=== PATIENT | female | born 1955 | race Caucasian/White ===

== ENCOUNTER → 2016-08-25 06:46 | Day surgery (SDC) | payer OTHER ==
[~2016-08-25 06:46] MED LIST: Buffered Lidocaine 1% SYR 3ML* 3 ML/SYR SYRINGE INTRADERM ONE; Buffered Lidocaine 1% SYR 3ML* 3 ML/SYR SYRINGE ONE; Bupivacaine 0.5% SDV PF* 30 ML VIAL ONE; Dexamethasone IV* 4 MG/ML 1 ML (4 MG) IV SLOW PU ONE; Dexamethasone IV* 4 MG/ML 1 ML (4 MG) ONE; Famotidine IV* 10 MG/ML 2 ML (20 mg) IV ONE; Famotidine IV* 10 MG/ML 2 ML (20 mg) ONE; HYDROcodone/ACETAMIN 5-325 MG* 1 TAB PO PRN; Ketorolac INJ* 30 MG/ML 1 ML VIAL IV PRN; Lidocaine 1% INJ* 10 MG/ML 30 ML SDV ONE; Lidocaine 2% PF * 5 ML VIAL ONE; Midazolam* 1 MG/ML 2 ML VIAL (2 MG) ONE; PROCHLORPERAZINE INJ 5 MG/ML 2 ML VIAL IV PRN; Propofol* 10 MG/ML 20 ML BTL IV PUSH ONE; ceFAZolin 2 GM PREMIX (*) 2 GM/50 ML BAG IVPB ONE; fentaNYL* 50 MCG/ML 2 ML VIAL (100 MCG VIAL) IV PRN; fentaNYL* 50 MCG/ML 2 ML VIAL (100 MCG VIAL) ONE
[2016-08-25 09:48] VITALS: BP 124/69
--- NOTE | 2016-08-25 12:06 | OP ---
DATE OF OPERATION: 08/25/16 - [facility] DATE OF : 59 SURGEON: Daniel Ordonez DPM BRUSH OPERATOR: None. ANESTHESIOLOGIST: Darin Ramirez MD ANESTHESIA: MAC with local. PRE-OP DIAGNOSIS: Painful bunion deformity with hallux limitus, left foot. POST-OP DIAGNOSIS: Painful bunion deformity with hallux limitus, left foot. OPERATIVE PROCEDURE: Bunionectomy with closing base wedge osteotomy in the left foot. INDICATIONS: The patient with chronic left forefoot pain and deformity with hallux valgus deformity, hypertrophy of the great toe joint, decreased range of motion, hypertrophic bone medially causing pain when walking, wearing shoes on a daily basis. The patient opts for surgery at this time to attempt to decrease the deformity, decrease pain, and improve function. PATHOLOGY: Degenerative bone. HEMOSTASIS: Pneumatic ankle tourniquet. MATERIALS: Two of 3.0-mm cannulated Laura screws. DESCRIPTION OF PROCEDURE: The patient was brought to the operating room, placed on the operating table in the supine position. The anesthesia department administered IV sedation and a peripheral nerve block was performed on the left forefoot with 1:1 mixture of 1% lidocaine plain and 0.5% Marcaine plain. The left foot was prepped and draped in the usual fashion. An Esmarch bandage was utilized to exsanguinate the left foot and the pneumatic ankle tourniquet was inflated to 250 mmHg above the well-padded left ankle. Attention was directed to the dorsal medial aspect of the left great toe joint where a curvilinear incision was made. The incision was deepened through the subcutaneous tissues with care being taken to retract neurovascular structures and cauterize superficial bleeders as needed. Next, an inverted L capsular incision was made to allow for exposure of the joint in the first metatarsal. There was noted to be hypertrophic bone at the medial eminence. The sesamoid apparatus had some adhesions, which were freed using a McGlamry elevator. The joint surfaces were inspected. There was noted to be partial and full- thickness cartilaginous erosions on the tibial sesamoid as well as the adjacent surface of the plantar medial first metatarsal head. Dissection was carried into the first intermetatarsal space where traditional lateral release was performed transecting the conjoint tendon of the abductor hallucis portion of the lateral sesamoid ligament and posterolateral capsule. Extensor hallucis brevis tendon was also identified and transected. This allowed for relaxation of lateral contractures. Next, the medial eminence of first metatarsal head was resected with a sagittal saw in such a manner as to preserve the sagittal groove. There resultant bone was sent off the field. Next, the closing base wedge osteotomy was performed. The apex, proximal, medial, and the base of the wedge more distal laterally. The osteotomy was reduced, secured with a bone clamp. Position was checked with intraoperative C-arm. Next, using standard technique, two of the 3.0- mm cannulated Laura screws were placed across the osteotomy site. The temporary fixation was removed and the osteotomy was found to be solid with no detectable motion or gapping. The screws were of 2 fingers ' tight. The C-arm was again used to assess fixation as well as correction. Sesamoid apparatus was noted to be realigned to the first metatarsal head. Rough surfaces were smoothed with a power bur. Surgical site was flushed with copious amounts of normal sterile saline. A medial capsulorrhaphy was then performed resecting redundant medial capsule and while holding the hallux in rectus position, 2-0 Polysorb was used to secure the capsular and periosteal tissues. Subcutaneous tissues were reapproximated, secured with 4-0 Polysorb, and skin was reapproximated with 5-0 nylon. 12 mg total of dexamethasone phosphate was infiltrated about the surgical site. The surgical site was then dressed with Xeroform gauze, 4x4 gauze, Tasha, and light Coban wrap. The pneumatic ankle tourniquet was deflated about the left ankle and a prompt hyperemic response was noted about all five digits of the the patient's left foot. Having appeared to tolerate the procedure and anesthesia well, the patient was transported via cart from the operating room to Recovery in satisfactory condition with capillary refill less than 3 seconds to all digits of the left foot. [id number]/[facility] #: [id number] MTDD
== END | disposition home or self-care (01) ==
LOC: OREAST 06:46
PROVIDERS: ATTEND Podiatrist Foot Surgery
DX: M21.612 Bunion of left foot (principal); M20.5X2 Other deformities of toe(s) (acquired), left foot; J45.909 Unspecified asthma, uncomplicated
CPT/HCPCS: 88304; 88311; C1713; J0690; J1100; J2250; J2704; J3010

== ENCOUNTER 2017-08-24 06:45 | Day surgery (SDC) | payer OTHER ==
[~2017-08-24 06:45] MED LIST changes: +Buffered Lidocaine 0.9% SYRIN* 5 ML/SYR SYRINGE INTRADERM ONE; -Buffered Lidocaine 1% SYR 3ML* 3 ML/SYR SYRINGE INTRADERM ONE; -Buffered Lidocaine 1% SYR 3ML* 3 ML/SYR SYRINGE ONE; -Bupivacaine 0.5% SDV PF* 30 ML VIAL ONE; -Dexamethasone IV* 4 MG/ML 1 ML (4 MG) IV SLOW PU ONE; -Dexamethasone IV* 4 MG/ML 1 ML (4 MG) ONE; -Famotidine IV* 10 MG/ML 2 ML (20 mg) IV ONE; -Famotidine IV* 10 MG/ML 2 ML (20 mg) ONE; -HYDROcodone/ACETAMIN 5-325 MG* 1 TAB PO PRN; -Ketorolac INJ* 30 MG/ML 1 ML VIAL IV PRN; -Lidocaine 1% INJ* 10 MG/ML 30 ML SDV ONE; -Lidocaine 2% PF * 5 ML VIAL ONE; -Midazolam* 1 MG/ML 2 ML VIAL (2 MG) ONE; -PROCHLORPERAZINE INJ 5 MG/ML 2 ML VIAL IV PRN; -Propofol* 10 MG/ML 20 ML BTL IV PUSH ONE; -ceFAZolin 2 GM PREMIX (*) 2 GM/50 ML BAG IVPB ONE; -fentaNYL* 50 MCG/ML 2 ML VIAL (100 MCG VIAL) IV PRN; -fentaNYL* 50 MCG/ML 2 ML VIAL (100 MCG VIAL) ONE
[2017-08-24] MEDS ORDERED: ceFAZolin 2 GM PREMIX (*) 2 GM/50 ML BAG IVPB ONE (06:56)
[2017-08-24] MEDS ORDERED: Dexamethasone IV* 4 MG/ML 1 ML (4 MG) ONE (07:17)
[2017-08-24] MEDS ORDERED: Bupivacaine 0.5% SDV PF* 10-30ML VIAL ONE (07:17)
[2017-08-24] MEDS ORDERED: Lidocaine 1% INJ* 10 MG/ML 30 ML SDV ONE (07:17)
[2017-08-24] MEDS ORDERED: fentaNYL* 50 MCG/ML 2 ML VIAL (100 MCG VIAL) ONE (07:46)
[2017-08-24] MEDS ORDERED: Midazolam* 1 MG/ML 2 ML VIAL (2 MG) ONE (07:46)
[2017-08-24] MEDS ORDERED: Naloxone* 0.4 MG/ML 1 ML VIAL IV PRN (09:22)
[2017-08-24 09:58] VITALS: BP 117/71
--- NOTE | 2017-08-25 01:37 | OP ---
DATE OF OPERATION: 08/24/17 - [facility] DATE OF : 59 SURGEON: Daniel Ordonez DPM JACK MACHINE OPERATOR: None. ANESTHESIA: MAC with local. PRE-OP DIAGNOSIS: Painful bunion deformity with hallux limitus, right foot. POST-OP DIAGNOSIS: Painful bunion deformity with hallux limitus, right foot. OPERATIVE PROCEDURE: Bunionectomy with closing base wedge osteotomy on the right foot. PATHOLOGY: Degenerative bone. HEMOSTASIS: Pneumatic ankle tourniquet. ESTIMATED BLOOD LOSS: Less than 10 cc. MATERIALS: Two of the 3.0 mm cannulated Laura screws. INDICATIONS: The patient with chronic right forefoot pain and deformity with bunion and hypertrophic bone and angular deformity of the great toe causing pain wearing shoes and walking. She opts for surgery at this time to attempt to decrease pain and improve function. DESCRIPTION OF PROCEDURE: The patient was brought to the operating room, placed on the operating table in supine position. The anesthesia department administered IV sedation and peripheral nerve block performed about the right forefoot with 1:1 mixture of 1% lidocaine plain and 0.5% Marcaine plain. The right foot was prepped and draped in the usual fashion. Next, an Esmarch bandage was utilized to exsanguinate the right foot and the pneumatic ankle tourniquet was inflated to 250 mmHg above a well-padded right ankle. Attention was directed to the dorsal medial aspect of the right great toe joint where a curvilinear incision was made. The incision was deepened through the subcutaneous tissues with care being taken to retract neurovascular structures and cauterize superficial bleeders as needed. Next, an inverted L capsular incision was made to allow for exposure of the joint. There was noted to be hypertrophic bone at the medial aspect of the first metatarsal head. Sagittal saw was used to resect this medial growth of bone in a manner as to preserve the sagittal groove. Next, a McGlamry elevator was needed to free the plantar lateral adhesions of the sesamoid apparatus. Next, dissection was carried into the first intermetatarsal space where a traditional lateral release was performed transecting the conjoint tendon of the adductor hallucis tendon, portion of the lateral fibular sesamoid ligament and portion of the lateral capsule. The extensor hallucis brevis tendon was also identified and transected. This allowed for relaxation of lateral contractures. A power bur was used to smooth any rough edges in the first metatarsal head medially. The surgical site was flushed with copious amounts of normal sterile saline. Dissection was carried proximally reflecting the periosteum and exposing the more proximal portion of the first metatarsal. Next, a closing base wedge osteotomy was performed to the direct desired correction. Temporary fixation was achieved with a bone clamp and the two wires from the [place] screw set. The position was assessed with intraoperative C- arm. Next, using standard technique, two of the 3.0 mm cannulated Laura screws were placed across the osteotomy site using standard technique. Temporary fixation was removed. The positioning of fixation was assessed. The osteotomy was inspected and found to be solid with no detectable motion or gapping and the screws were found to be 2 fingers tight. The surgical site was flushed with copious amount of normal sterile saline. The medial capsulorrhaphy was performed resecting redundant medial capsule. Next, the periosteal and capsular tissues were reapproximated and secured with 2-0 Vicryl by holding the hallux in the rectus position. Subcutaneous tissues were reapproximated with a 4-0 Vicryl and skin was secured with 5-0 nylon. A 12 mg of dexamethasone phosphate in total was infiltrated about the surgical site. The incision was then dressed with Xeroform gauze and light compressive dressing was applied consisting of 4x4 gauze, Tasha, and light Coban wrap. The pneumatic ankle tourniquet was deflated about the right ankle and a prompt hyperemic response was noted to all 5 digits in the patient' s right foot. Having appeared to tolerate the procedures and anesthesia well. The patient was transported via cart from the operating room to Recovery in satisfactory condition with cap refill less than 3 seconds to all digits of the right foot. [id number]/[facility] #: [id number] [facility]
== END 2017-08-24 10:08 | disposition home or self-care (01) ==
LOC: OREAST 06:45
PROVIDERS: ATTEND Podiatrist Foot Surgery
DX: Z01.818 Encounter for other preprocedural examination (principal); M20.5X1 Other deformities of toe(s) (acquired), right foot; M21.611 Bunion of right foot; J45.909 Unspecified asthma, uncomplicated; F32.9 Major depressive disorder, single episode, unspecified; E78.00 Pure hypercholesterolemia, unspecified; R94.31 Abnormal electrocardiogram [ECG] [EKG]; E78.5 Hyperlipidemia, unspecified; Z88.1 Allergy status to other antibiotic agents; Z88.8 Allergy status to other drugs, medicaments and biological substances
CPT/HCPCS: 76000; 88304; 88311; C1713; C1776; J0690; J1100; J2250; J3010

== ENCOUNTER 2019-01-14 18:36 | Emergency (ER) | payer OTHER ==
[2019-01-14 19:01] VITALS: BP 148/73
[2019-01-14] MEDS ORDERED: predniSONE TAB* 20 MG PO ONE (19:12)
--- NOTE | 2019-01-14 19:19 | ED ---
Skin Complaint - HPI Summary HPI Summary: 63 yr old with the complaint of poison claudine that is spreading over the past 9 days. She contacted the poison claudine in their garden over . She complains of itching to the right arm with blistering and also itching to the legs and both arms now. She feels it is spreading. Symptoms are moderate and the itching is the most bothersome. - History of Current Complaint Chief Complaint: UCSkin Time Seen by Provider: 01/14/19 18:59 Stated Complaint: SKIN COMPLAINT Pain Intensity: 0 - Allergy/Home Medications Allergies/Adverse Reactions: Allergies Allergy/AdvReac Type Severity Reaction Status Date / Time MS Sulfamethoxazole Allergy Severe Anaphylatic Verified 08/24/17 07:03 w/Trimethoprim Shock [From Bactrim] MS Erythromycin Allergy Intermediate HIVE Verified 08/24/17 07:03 [Erythromycin] erythromycin base Allergy Hives Verified 01/14/19 18:59 sulfamethoxazole Allergy Anaphylatic Verified 01/14/19 18:59 [From Bactrim] Shock trimethoprim [From Bactrim] Allergy Anaphylatic Verified 01/14/19 18:59 Shock ENVIRONMENTAL Allergy Severe Hives , Uncoded 08/24/17 07:03 breathing problems PMH/Surg Hx/FS Hx/Imm Hx Endocrine/Hematology History: Reports: Hx Anemia - IN THE PAST ONLY Denies: Hx Diabetes Cardiovascular History: Denies: Hx Angina, Hx Coronary Artery Disease, Hx Hypercholesterolemia, Hx Hypertension, Hx Myocardial Infarction, Hx Valvular Heart Disease, Other Cardiovascular Problems/Disorders Respiratory History: Reports: Hx Asthma - UNDER CONTROL- allergy triggered Denies: Hx Chronic Obstructive Pulmonary Disease (COPD), Other Respiratory Problems/Disorders GI History: Denies: Other GI Disorders Sensory History: Reports: Hx Contacts or Glasses - GLASSES AND CONTAVTS Denies: Hx Hearing Aid Opthamlomology History: Reports: Hx Contacts or Glasses - GLASSES AND CONTAVTS Psychiatric History: Reports: Hx Anxiety - ON MEDS, Hx Depression - ON MEDS - Cancer History Hx Chemotherapy: No Hx Radiation Therapy: No - Surgical History Surgery Procedure, Year, and Place: TONSILECTOMY, 1978, [facility]. NASAL SURGERY 1998, [facility] [place]. Bilateral Bunionectomy Hx Anesthesia Reactions: No Infectious Disease History: No Infectious Disease History: Denies: Traveled Outside the [place] in Last 30 Days - Family History Known Family History: Positive: None - Social History Alcohol Use: Occasionally Alcohol Amount: 1-3 MONTH Substance Use Type: Reports: None Smoking Status (MU): Never Smoked Tobacco Review of Systems Positive: Rash All Other Systems Reviewed And Are Negative: Yes Physical Exam Triage Information Reviewed: Yes Vital Signs On Initial Exam: Initial Vitals Temp Pulse Resp BP Pulse Ox 98.5 F 61 18 148/73 98 01/14/19 18:59 01/14/19 18:59 01/14/19 18:59 01/14/19 18:59 01/14/19 18:59 Vital Signs Reviewed: Yes Appearance: Positive: Well-Appearing, No Pain Distress Skin: Positive: Other - wheeping and blisters in a linear array on the right arm and then new areas on the arms and legs. No evidence of cellulitis. No secondary impetigo. Eyes: Positive: EOMI ENT: Positive: Normal ENT inspection, Pharynx normal Neck: Positive: Supple, Nontender Respiratory/Lung Sounds: Positive: Clear to Auscultation, Breath Sounds Present Cardiovascular: Positive: RRR. Negative: Murmur Abdomen Description: Positive: Nontender Musculoskeletal: Positive: Strength/ROM Intact Neurological: Positive: Sensory/Motor Intact, Alert, Oriented to Person Place, Time, CN Intact II-III, Normal Gait, Speech Normal Psychiatric: Positive: Normal Diagnostics - Vital Signs Vital Signs Temp Pulse Resp BP Pulse Ox 01/14/19 18:59 98.5 F 61 18 148/73 98 - Laboratory Lab Statement: Any lab studies that have been ordered have been reviewed, and results considered in the medical decision making process. Course/Dx - Course Course Of Treatment: 63 yr old with poison claudine. Rx with medrol dose rodrigo. Dose of prednisone given here. - Diagnoses Provider Diagnoses: Poison claudine dermatitis, Hypertension Discharge - Sign-Out/Discharge Documenting (check all that apply): Patient Departure All imaging exams completed and their final reports reviewed: No Studies - Discharge Plan Condition: Good Disposition: HOME Prescriptions: methylPREDNISolone [Medrol] 4 mg PO .SEE RORDIGO INSTRUCTION #1 [id number] Patient Education Materials: Poison Claudine (ED), Hypertension (ED) Referrals: Isabel Epps MD [Primary Care Provider] - 2 Days - Billing Disposition and Condition Condition: GOOD Disposition: Home
== END 2019-01-14 19:21 | disposition home or self-care (01) ==
LOC: UCEAST 18:36
DX: L23.7 Allergic contact dermatitis due to plants, except food (principal); I10 Essential (primary) hypertension; Z88.2 Allergy status to sulfonamides
CPT/HCPCS: 99212; G0463; J7512